=== PATIENT | male | born 1970 | race Caucasian/White ===

== ENCOUNTER 2021-03-05 22:04 | Emergency (ER) | payer BC ==
[~2021-03-05] VITALS: Ht 172.7 cm; Wt 73.0 kg
[2021-03-05] MEDS ORDERED: KETOROLAC 60MG/2ML VIAL IM STA (22:21)
[2021-03-05 23:17] LABS: BASOPHILS % 0.3 % (0.0-2.0); EOSINOPHILS % 0.7 % (0.0-5.0); HEMATOCRIT. 41.8 % (42.0-52.0); HEMOGLOBIN. 14.7 g/dL (14.0-18.0); LYMPHOCYTES % 7.9 % (20.0-50.0); MEAN CORPUSCULAR HEMOGLOBIN 32.5 pg (28.0-32.0); MEAN CORPUSCULAR VOLUME 92.5 fL (80.0-94.0); MEAN PLATELET VOLUME 8.6 fl (7.4-10.4); MONOCYTES % 6.6 % (2.0-8.0); NEUTROPHILS % 84.5 % (40.0-76.0); PLATELET 233 x1000/uL (130-400); RED BLOOD CELL COUNT 4.52 mill/uL (4.7-6.1); RED CELL DISTRIBUTION WIDTH 12.9 % (11.6-14.6)
[2021-03-05 23:23] LABS: CHLORIDE 106 mEq/L (98-107)
[2021-03-05 23:27] LABS: ETHANOL BLOOD < 10 mg/dL
[2021-03-05 23:30] LABS: CLARITY URINE CLEAR (CLEAR); COLOR URINE YELLOW (YELLOW); KETONES URINE NEGATIVE (NEGATIVE); LEUKOCYTE ESTERASE URINE NEGATIVE (NEGATIVE); NITRITE URINE NEGATIVE (NEGATIVE); OCCULT BLOOD URINE TRACE (NEGATIVE); PH URINE 6.5 (4.5-8.0); PROTEIN URINE NEGATIVE (NEGATIVE); SPECIFIC GRAVITY URINE 1.017 (1.005-1.030); UROBILINOGEN URINE 0.2 E.U./dL (0.2-1.0)
[2021-03-06] MEDS ORDERED: IBUP-2029 MT (01:24)
[2021-03-06 01:32] VITALS: BP 135/97
== END 2021-03-06 01:44 | disposition home or self-care (01) ==
LOC: ER 22:04
DX: N20.0 Calculus of kidney (principal); I10 Essential (primary) hypertension
CPT/HCPCS: 36415; 74176; 80053; 80320; 81003; 83690; 85025; 96372; 99284; J1885; G0480